=== PATIENT | female | born 2000 | race Caucasian/White ===

== ENCOUNTER → 2019-11-01 14:37 | Outpatient (BNVA) | payer OTHER, MEDICAID, SELFPAY | PROVIDERS: Family Provider Nurse Practitioner; PCP Nurse Practitioner; Visit Provider Nurse Practitioner Family | DX: J02.9 Acute pharyngitis, unspecified (principal) | CPT/HCPCS: 87081; 87880 ==

== ENCOUNTER → 2020-02-23 09:54 | Outpatient (BNVA) | payer OTHER, MEDICAID, SELFPAY | PROVIDERS: Family Provider Nurse Practitioner; PCP Nurse Practitioner; Visit Provider Nurse Practitioner | DX: Z30.42 Encounter for surveillance of injectable contraceptive (principal) | CPT/HCPCS: 81025 ==

== ENCOUNTER → 2021-02-01 11:51 | Outpatient (BNVA) | payer OTHER, MEDICAID, SELFPAY | PROVIDERS: Family Provider Nurse Practitioner; PCP Nurse Practitioner; Visit Provider Nurse Practitioner | DX: Z30.42 Encounter for surveillance of injectable contraceptive (principal); N91.2 Amenorrhea, unspecified | CPT/HCPCS: 81025 ==

== ENCOUNTER → 2021-07-17 11:55 | Outpatient (BNVA) | payer OTHER, SELFPAY | PROVIDERS: Family Provider Nurse Practitioner; PCP Nurse Practitioner; Visit Provider Nurse Practitioner | DX: Z12.4 Encounter for screening for malignant neoplasm of cervix (principal) | CPT/HCPCS: 88175 ==

== ENCOUNTER → 2021-07-27 12:52 | Outpatient (BNVA) | payer OTHER, MEDICAID, SELFPAY | PROVIDERS: Family Provider Nurse Practitioner; PCP Nurse Practitioner; Visit Provider Nurse Practitioner | DX: Z12.4 Encounter for screening for malignant neoplasm of cervix (principal) | CPT/HCPCS: 87624 ==

== ENCOUNTER → 2021-08-07 14:37 | Outpatient (BNVA) | payer OTHER, SELFPAY | PROVIDERS: Family Provider Nurse Practitioner; PCP Nurse Practitioner; Visit Provider Registered Nurse Neonatal Intensive Care | DX: Z20.822 Contact with and (suspected) exposure to COVID-19 (principal) | CPT/HCPCS: 87071; 87400; 87635; 87880 ==

== ENCOUNTER → 2022-01-28 10:03 | Outpatient (BNVA) | payer OTHER, SELFPAY | PROVIDERS: Family Provider Nurse Practitioner; PCP Nurse Practitioner; Visit Provider Obstetrics & Gynecology | DX: Z32.01 Encounter for pregnancy test, result positive (principal) | CPT/HCPCS: 84702 ==

== ENCOUNTER → 2022-01-30 10:01 | Outpatient (BNVA) | payer OTHER, SELFPAY | PROVIDERS: Family Provider Nurse Practitioner; PCP Nurse Practitioner; Visit Provider Obstetrics & Gynecology | DX: Z34.90 Encounter for supervision of normal pregnancy, unspecified, unspecified trimester (principal) | CPT/HCPCS: 84702 ==

== ENCOUNTER 2022-02-28 07:07 | Outpatient (CLI) | payer OTHER, MEDICAID, SELFPAY ==
--- NOTE | 2022-02-28 07:15 | US_ITS ---
WS: [id number] EARLY OBSTETRICAL ULTRASOUND (<14 WEEKS). HISTORY: Dating. COMPARISON: None available. Single intrauterine gestational sac is identified. Cardiac activity at 164 BPM. [place]-rump length yosvany sures 3.0 cm which corresponds to a gestation of 9w6d. Normal-appearing yolk sac and amnion demonstra stephanie. No subchorionic hemorrhage. No free fluid. Normal size ovaries with no mass. US/US OB <= 14 weeks fetus [id number] IMPRESSION: 1. Single intrauterine gestation of 9 weeks 6 days with an EDC of 09/27/2022. 2. Normal cardiac activity.
== END 2022-02-28 07:08 | disposition home or self-care (01) ==
PROVIDERS: PCP Nurse Practitioner; Visit Provider Obstetrics & Gynecology
DX: Z36.87 Encounter for antenatal screening for uncertain dates (principal)
CPT/HCPCS: 76801

== ENCOUNTER → 2022-04-18 13:15 | Outpatient (BNVA) | payer OTHER, MEDICAID, SELFPAY | PROVIDERS: PCP Nurse Practitioner; Visit Provider Obstetrics & Gynecology | DX: Z34.90 Encounter for supervision of normal pregnancy, unspecified, unspecified trimester (principal) | CPT/HCPCS: 80307; 84315; 84443; 85025; 86592; 86762; 86803; 86850; 86900; 87086; 87340; 87491; 87591; 87661; 87806; 88175 ==

== ENCOUNTER → 2022-04-22 08:32 | Outpatient (BNVA) | payer OTHER, SELFPAY | PROVIDERS: PCP Nurse Practitioner; Visit Provider Obstetrics & Gynecology | DX: Z34.90 Encounter for supervision of normal pregnancy, unspecified, unspecified trimester (principal) | CPT/HCPCS: 85025 ==

== ENCOUNTER → 2022-07-04 11:03 | Outpatient (BNVA) | payer OTHER, MEDICAID, SELFPAY | PROVIDERS: PCP Nurse Practitioner; Visit Provider Obstetrics & Gynecology | DX: Z34.90 Encounter for supervision of normal pregnancy, unspecified, unspecified trimester (principal) | CPT/HCPCS: 82950; 84315 ==

== ENCOUNTER → 2022-07-17 13:00 | Outpatient (BNVA) | payer OTHER, MEDICAID, SELFPAY | PROVIDERS: PCP Nurse Practitioner; Visit Provider Obstetrics & Gynecology | DX: Z34.90 Encounter for supervision of normal pregnancy, unspecified, unspecified trimester (principal) | CPT/HCPCS: 84315; 85025 ==

== ENCOUNTER → 2022-08-22 09:45 | Outpatient (BNVA) | payer OTHER, MEDICAID, SELFPAY | PROVIDERS: PCP Nurse Practitioner; Visit Provider Obstetrics & Gynecology | DX: Z34.90 Encounter for supervision of normal pregnancy, unspecified, unspecified trimester (principal) | CPT/HCPCS: 84315; 85025 ==

== ENCOUNTER 2022-08-30 02:00 | Observation (INO) | payer OTHER, MEDICAID, SELFPAY ==
[2022-08-29 22:09] VITALS: BMI 34.4
[2022-08-29 22:20] VITALS: BP 128/77; PULSE 103
[2022-08-29 22:43] VITALS: RESP 16
[2022-08-29 23:01] LABS: Amphetamines Screen Urine Negative (Negative); Barbiturates Screen Urine Negative (Negative); Benzodiazepines Screen Urine Negative (Negative); Cocaine Screen Urine Negative (Negative); Opiate Screen Urine Negative (Negative); PCP Screen Urine Negative (Negative); THC Screen Urine Negative (Negative)
[2022-08-29 23:47] LABS: Bilirubin Urine Neg (Negative); Blood Urine Neg (Negative); Glucose Urine UA Norm (Normal); Ketones Urine Negative (Negative); Leukocyte Esterase Urine 2+ (Negative); Nitrate Urine Negative (Negative); Protein Urine Trace (Negative); Specific Gravity, Urine 1.015 (1.005-1.030); Urine Appearance SL Hazy (CLEAR); Urine Color Yellow (Yellow); Urobilinogen Urine Norm (Negative); pH Urine 7 (5-7)
[2022-08-29 23:48] LABS: Bacteria Urine 2+ /hpf; RBC Urine 0-4 /hpf (0-2); Squamous Epithelial Cell Urine 15-25 /hpf (0-5); WBC Urine 40-55 /hpf (0-5)
[2022-08-29 23:49] LABS: Add Urine Culture? No
[2022-08-29] MEDS: terbutaline 1 mg/mL INJ 0.25 MG SUBCUT (23:49)
[2022-08-29] MEDS: lactated ringers 1,000 ML 999 ML IV (23:49)
[2022-08-29 23:54] VITALS: PULSE 93; O2SAT 98
[2022-08-29 23:59] VITALS: PULSE 88; O2SAT 100
[2022-08-30] VITALS (105 sets, daily range): BP systolic 98–114; BP diastolic 56–69; PULSE 76–122; RESP 18; TEMP 36.1; O2SAT 92–100
[2022-08-30] MEDS: ampicillin 1,000 MG in sodium chloride 0.9% (plus) 50 ML 100 MG IV (00:06)
[2022-08-30] MEDS: terbutaline 1 mg/mL INJ 0.25 MG SUBCUT (01:01)
[2022-08-30] MEDS: NIFEdipine 10 mg Capsule 30 MG PO (02:28)
[2022-08-30 03:01] LABS: Basophils % 0.2 %; Eosinophils % 0.1 %; Hematocrit 37.5 % (37.0-47.0); Hemoglobin 12.7 g/dL (11.5-15.3); Lymphocytes # 2.3 10^3/uL (0.8-4.8); Mean Corpuscular HGB Conc 33.9 g/dL (30.0-36.0); Mean Corpuscular Volume 91.5 fl (81-99); Mean Platelet Volume 10.1 fL (7.4-10.4); Monocytes % 6.9 %; Neutrophils # 10.82 10^3/uL (1.8-7.7); Nucleated Red Blood Cells % 0 %; Platelet Count 179 10^3/cmm (130-400); White Blood Count 14.3 10^3/uL (4.0-10.0)
[2022-08-30 03:21] LABS: Alanine Aminotransferase 12 U/L (0-33); Albumin Level 3.3 g/dL (3.5-5.2); Alkaline Phosphatase 192 U/L (35-105); Anion Gap 15.1 (5-19); Aspartate Amino Transferase 12 U/L (0-32); Blood Urea Nitrogen 4 mg/dL (6-20); Calcium 8.8 mg/dL (8.5-10.5); Carbon Dioxide 20 mmol/L (22-29); Chloride 105 mmol/L (98-107); Globulin 2.9 g/dL (1.3-4.6); Glomerular Filtration Rate 196.1 mL/min (90-130); Glucose 105 mg/dL (65-115); Osmolality Calculated 281 mOsm/kg (285-295); Potassium 3.1 mmol/L (3.5-5.1); Sodium 137 mmol/L (136-145); Total Bilirubin 0.2 mg/dL (0.15-1.2); Total Protein 6.2 g/dL (6.6-8.7)
[2022-08-30] MEDS: dextrose 5%-ns + KCl 20 20 MEQ/1,000 ML BAG 125 MEQ IV (04:27)
--- NOTE | 2022-08-30 04:46 | PC.NURSE ---
Rand Le gave orders to recheck pt cervix 4 hours from her check.
--- NOTE | 2022-08-30 09:43 | P.SS_ITS ---
Short Stay Summary Providers Date of Admit/Discharge: 08/30/22 Attending Provider: Beba Le DO Consults: Dr. Chris Gomez Primary Care Provider: ALAN Scott Chief Complaint: Abdominal Pain, Vaginal Pressure HPI History of Present Illness Harman Ortiz is a 22 year old female G3, P1 at 36 weeks gestation with a GAB 09/24/2022. Patient was observed on labor and delivery for labor contractions. Initial cervix exam was 1 cm and advanced to 1.5 almost 2 cm / 50%/-2 vertex presentation. Patient denied leakage of fluid or vaginal bleeding. Patient complained of anxiety and depression with suicidal ideation. She states that she had talked with friends and no longer desired suicidal attempt. Patient has been having stressful issues with father of baby. Patient has history of anxiety and depression but stopped her medication x2 when she found out she was . After overnight observation with uterine toco lysis with terbutaline and Procardia contractions spaced out but returned in an irregular fashion. I talked with Dr. Gomez regarding a consultation regarding patient's suicidal ideation anxiety and depression, he will see patient and determine if discharge is advised or inpatient observation. Review of Systems General: Reports: 10 or more systems reviewed and unremarkable except in HPI and below Home Meds/Allergies Home Medications and Allergies Home Medications Medication Instructions Recorded Confirmed Type prenat.vits,rima,dlg-wbpk-gvina 1 tab PO DAILY 04/18/22 08/22/22 History Allergies Allergy/AdvReac Type Severity Reaction Status Date / Time seafood Allergy Unknown Unknown Uncoded 08/22/22 09:36 PFSH Acute PFSH: Medical History Anxiety and depression Oral contraceptive prescribed Surgical History No history of previous surgery Family History Grandmother Cancer Hypertension Thyroid condition Diabetes Hypercholesterolemia Grandfather Hypertension Diabetes Heart disease Colon cancer Denies family history of Breast cancer Female Reproductive History: Date of last menstrual period: 06/19/21 : 3 Para: 1 Vitals/I&O/Wt Last Vital Signs Temp 97.0 F L 08/30/22 07:17 Pulse 76 08/30/22 09:08 Resp 18 08/30/22 07:17 BP 99/57 08/30/22 09:08 Pulse Ox 97 08/30/22 07:09 Weight last 48 hrs Weight 93.894 kg Physical Exam Narrative: 22-year-old female alert and orient x3 no acute distress HENMT: COMMON NORMALS: normocephalic, hearing grossly normal bilaterally, moist oral mucous membranes and dentition normal (Poor dentition) HEAD & SCALP: normocephalic Resp: COMMON NORMALS: normal respiratory effort and clear to auscultation bilaterally AUSCULTATION: clear to auscultation bilaterally Cardio: COMMON NORMALS: regular rate and regular rhythm RATE: regular rate RHYTHM: regular rhythm : COMMON NORMALS: Yes no CVA tenderness BLADDER/KIDNEY EXAM: Yes no CVA tenderness Back/Pelvis: COMMON NORMALS: no CVA tenderness PELVIS: Yes Other pelvic findings COCCYX: no swelling, no tenderness and Other pelvic findings Extremity: GENERAL: Yes edema (No edema) Neuro: COMMON NORMALS: CN's II-XII intact bilaterally Psych: COMMON NORMALS: mental status grossly normal, Normal thought process present, cooperative, normal affect, speech normal, activity/motor behavior normal, denies homicidal ideation and denies suicidal ideation (Admits to suicidal ideation 08/29/2022) SPEECH: Yes normal speech THOUGHT PROCESS: Normal thought process present Hospital Course Hospital Course See above history of present complaint Discharge Summary 22-year-old G3, P1 female at 36 weeks intrauterine gestation was observed on labor and delivery for labor. Contractions remained irregular with no cervical change past 2 cm. Psych consultation with Dr. Chris Gomez due to patient having suicidal ideation on August 29, 2022. She has history of anxiety and depression presently on no medications. If discharge is acceptable with Dr. Gomez will discharge patient to home she is to follow-up for visit on 09/06/2022. Discharge Plan Discharge Patient Disposition: Home Condition: Stable Prescriptions: Continued prenat.vits,rima,pmr-lfmh-pwjmu Tablet 1 tab PO DAILY Discharge Orders: Discharge Order (Routine); Ordered 08/30/22 Ordered By: Beba Le Discharge Diet: Regular Discharge Activity: Resume usual activity Patient Instructions: Opioid Safety Assessment: A. 1. 36-week IUP 2. contractions 3. Suicidal ideations with anxiety and depression 4. Hypokalemia?resolving 5. Asymptomatic bacteriuria Plan of Treatment: P. 1. Observe on labor and delivery for labor 2. IV hydration, LR followed by D5 1/2 NS plus potassium 3. Terbutaline 0.25 mg subcu x2 doses 30 minutes apart 4. Procardia 30 mg p.o. 5. Ampicillin 1 g IVPB 6. Psych consultation Dr. Chris Gomez 7. Discharge to home after consultation with Dr. Gomez if no inpatient care needed. 8. Follow-up 1 week for visit (09/06/2022) 9. Rx Macrobid 100 mg twice daily x7 days for asymptomatic bacteriuria Attestations Medical Necessity Statement*: Labor and delivery observation was needed due to labor contractions and suicidal ideation. Time Spent in Patient Care*: greater than 30 min Quality Metrics Clinical Quality Measures: [ No reported AMI, CVA or VTE this stay ] Coding Level of Care Code Acute Speeder Operator for Chg Fwd Exam Comprehensive Medical Decision Making Moderate Complexity
--- NOTE | 2022-08-30 09:44 | P.TNLD_ITS ---
OB L&D Triage Visit Information: Date of evaluation: 08/30/22 Reason for evaluation: other Comments/Additional reason(s) for visit: 22-year-old female G3, P1 at 36 weeks gestation by 20-week ultrasound with GAB 09/24/2022. Patient was observed on labor and delivery with complaints of abdominal pain onset 3 days ago. Patient also complained of thoughts of suicide onset August 29, 2022. Patient gives history of anxiety and depression before was on medication but stopped after diagnosis. Patient has been having stressful few days with father of the baby. External monitoring reveals contractions every 2 to 4 minutes mild to moderate by palpation cervix initially 1 cm and progressed to 1.5 cm / 50%/-3. Membranes intact. Patient denies any leakage of fluid or vaginal bleeding. Evaluation: Baseline heart rate: 135 Variability: Moderate (11-25) monitor accelerations: Present 15x15 monitor decelerations: None Cervical dilation (cm): 2 Cervical effacement (%): 50 station: -2 Laboratory results: Laboratory Tests 08/29/22 08/29/22 08/30/22 22:44 22:44 02:05 WBC 14.3 H RBC 4.10 Hgb 12.7 Hct 37.5 MCV 91.5 MCH 31.0 MCHC 33.9 RDW 12.0 L Plt Count 179 MPV 10.1 Neut % (Auto) 76.0 Lymph % (Auto) 16.0 [place] % (Auto) 6.9 Eos % (Auto) 0.1 Baso % (Auto) 0.2 Neut # (Auto) 10.82 H Lymph # (Auto) 2.3 [place] # (Auto) 1.0 H Eos # (Auto) 0.0 Baso # (Auto) 0.0 Nucleated RBC % (a uto) 0 Nucleated RBCs # 0.0 Sodium Potassium Chloride Carbon Dioxide Anion Gap BUN Creatinine GFR Calculation Glucose Calculated Osmolal ity Calcium Total Bilirubin AST ALT Alkaline Phosphata se Total Protein Albumin Globulin Urine Color Yellow Urine Appearance Sl hazy A Urine pH 7 Ur Specific Gravit y 1.015 Urine Protein Trace Urine Glucose (UA) Norm Urine Ketones Negative Urine Blood Neg Urine Nitrate Negative Urine Bilirubin Neg Urine Urobilinogen Norm Ur Leukocyte Adriana ase 2+ H Urine RBC 0-4 H Urine WBC 40-55 H Ur Squamous Epith Cells 15-25 H Amorphous Sediment Not Reportable Urine Bacteria 2+ H Urine Opiates Scre en Negative Ur Barbiturates Sc reen Negative Ur Phencyclidine S crn Negative Ur Amphetamines Sc reen Negative U Benzodiazepines Scrn Negative Urine Cocaine Scre en Negative U Marijuana (THC) Screen Negative 08/30/22 02:05 WBC RBC Hgb Hct MCV MCH MCHC RDW Plt Count MPV Neut % (Auto) Lymph % (Auto) [place] % (Auto) Eos % (Auto) Baso % (Auto) Neut # (Auto) Lymph # (Auto) [place] # (Auto) Eos # (Auto) Baso # (Auto) Nucleated RBC % (a uto) Nucleated RBCs # Sodium 137 Potassium 3.1 L Chloride 105 Carbon Dioxide 20 L Anion Gap 15.1 BUN 4 L Creatinine 0.4 L GFR Calculation 196.1 H Glucose 105 Calculated Osmolal ity 281 L Calcium 8.8 Total Bilirubin 0.2 AST 12 ALT 12 Alkaline Phosphata se 192 H Total Protein 6.2 L Albumin 3.3 L Globulin 2.9 Urine Color Urine Appearance Urine pH Ur Specific Gravit y Urine Protein Urine Glucose (UA) Urine Ketones Urine Blood Urine Nitrate Urine Bilirubin Urine Urobilinogen Ur Leukocyte Adriana ase Urine RBC Urine WBC Ur Squamous Epith Cells Amorphous Sediment Urine Bacteria Urine Opiates Scre en Ur Barbiturates Sc reen Ur Phencyclidine S crn Ur Amphetamines Sc reen U Benzodiazepines Scrn Urine Cocaine Scre en U Marijuana (THC) Screen Vital signs: Vital Signs - 24 hr 08/29/22 22:20 08/29/22 23:54 08/29/22 23:59 Temperature Pulse Rate 103 H 93 88 Respiratory Rate Blood Pressure 128/77 Pulse Oximetry 98 100 08/30/22 00:04 08/30/22 00:09 08/30/22 00:14 Temperature Pulse Rate 101 H 106 H 107 H Respiratory Rate Blood Pressure Pulse Oximetry 99 99 98 08/30/22 00:19 08/29/22 22:43 08/30/22 00:37 Temperature Pulse Rate 106 H 102 H Respiratory Rate 16 Blood Pressure 109/64 Pulse Oximetry 99 08/30/22 00:51 08/30/22 00:56 08/30/22 01:01 Temperature Pulse Rate 100 116 H 109 H Respiratory Rate Blood Pressure Pulse Oximetry 97 97 97 08/30/22 01:07 08/30/22 01:06 08/30/22 01:11 Temperature Pulse Rate 106 H 109 H 121 H Respiratory Rate Blood Pressure 109/63 Pulse Oximetry 98 98 08/30/22 01:16 08/30/22 01:21 08/30/22 01:29 Temperature Pulse Rate 118 H 117 H 112 H Respiratory Rate Blood Pressure Pulse Oximetry 97 97 99 08/30/22 01:34 08/30/22 01:37 08/30/22 01:39 Temperature Pulse Rate 107 H 113 H 110 H Respiratory Rate Blood Pressure 114/66 Pulse Oximetry 100 100 08/30/22 01:44 08/30/22 01:49 08/30/22 01:54 Temperature Pulse Rate 108 H 112 H 117 H Respiratory Rate Blood Pressure Pulse Oximetry 99 100 99 08/30/22 01:59 08/30/22 02:04 08/30/22 02:08 Temperature Pulse Rate 111 H 109 H 109 H Respiratory Rate Blood Pressure 111/69 Pulse Oximetry 99 99 08/30/22 02:09 08/30/22 02:14 08/30/22 02:19 Temperature Pulse Rate 106 H 106 H 101 H Respiratory Rate Blood Pressure Pulse Oximetry 99 98 97 08/30/22 02:24 08/30/22 02:29 08/30/22 02:34 Temperature Pulse Rate 101 H 122 H 107 H Respiratory Rate Blood Pressure Pulse Oximetry 97 98 96 08/30/22 02:37 08/30/22 02:39 08/30/22 02:44 Temperature Pulse Rate 106 H 113 H 106 H Respiratory Rate Blood Pressure 113/68 Pulse Oximetry 98 97 08/30/22 02:49 08/30/22 02:54 08/30/22 02:59 Temperature Pulse Rate 105 H 102 H 105 H Respiratory Rate Blood Pressure Pulse Oximetry 98 96 97 08/30/22 03:04 08/30/22 03:07 08/30/22 03:09 Temperature Pulse Rate 102 H 100 103 H Respiratory Rate Blood Pressure 114/65 Pulse Oximetry 95 94 94 08/30/22 03:15 08/30/22 03:14 08/30/22 03:20 Temperature Pulse Rate 118 H 110 H 99 Respiratory Rate Blood Pressure Pulse Oximetry 94 94 94 08/30/22 03:19 08/30/22 03:24 08/30/22 03:26 Temperature Pulse Rate 104 H 98 101 H Respiratory Rate Blood Pressure Pulse Oximetry 95 95 94 08/30/22 03:29 08/30/22 03:34 08/30/22 03:37 Temperature Pulse Rate 104 H 104 H 103 H Respiratory Rate Blood Pressure 99/56 Pulse Oximetry 95 95 08/30/22 03:39 08/30/22 03:44 08/30/22 03:50 Temperature Pulse Rate 101 H 102 H 96 Respiratory Rate Blood Pressure Pulse Oximetry 94 94 92 08/30/22 03:49 08/30/22 03:54 08/30/22 03:59 Temperature Pulse Rate 99 102 H 94 Respiratory Rate Blood Pressure Pulse Oximetry 93 97 96 08/30/22 04:04 08/30/22 04:08 08/30/22 04:09 Temperature Pulse Rate 89 96 90 Respiratory Rate Blood Pressure 109/65 Pulse Oximetry 95 95 08/30/22 04:14 08/30/22 04:19 08/30/22 04:24 Temperature Pulse Rate 96 100 89 Respiratory Rate Blood Pressure Pulse Oximetry 97 98 96 08/30/22 04:29 08/30/22 04:34 08/30/22 04:38 Temperature Pulse Rate 96 96 93 Respiratory Rate Blood Pressure 100/60 Pulse Oximetry 96 96 08/30/22 04:39 08/30/22 04:44 08/30/22 04:49 Temperature Pulse Rate 88 94 89 Respiratory Rate Blood Pressure Pulse Oximetry 95 95 93 08/30/22 04:54 08/30/22 04:59 08/30/22 05:01 Temperature Pulse Rate 88 97 92 Respiratory Rate Blood Pressure Pulse Oximetry 95 95 92 08/30/22 05:04 08/30/22 05:08 08/30/22 05:09 Temperature Pulse Rate 92 92 96 Respiratory Rate Blood Pressure 98/57 Pulse Oximetry 93 92 95 08/30/22 05:15 08/30/22 05:14 08/30/22 05:19 Temperature Pulse Rate 95 95 94 Respiratory Rate Blood Pressure Pulse Oximetry 92 93 95 08/30/22 05:24 08/30/22 05:29 08/30/22 05:34 Temperature Pulse Rate 95 92 91 Respiratory Rate Blood Pressure Pulse Oximetry 95 96 94 08/30/22 05:37 08/30/22 05:39 08/30/22 05:44 Temperature Pulse Rate 93 91 96 Respiratory Rate Blood Pressure 100/56 Pulse Oximetry 95 96 08/30/22 05:49 08/30/22 05:54 08/30/22 05:59 Temperature Pulse Rate 90 93 86 Respiratory Rate Blood Pressure Pulse Oximetry 96 95 94 08/30/22 06:04 08/30/22 06:07 08/30/22 06:09 Temperature Pulse Rate 94 93 89 Respiratory Rate Blood Pressure 99/57 Pulse Oximetry 95 96 08/30/22 06:14 08/30/22 06:19 08/30/22 06:24 Temperature Pulse Rate 89 94 89 Respiratory Rate Blood Pressure Pulse Oximetry 96 96 96 08/30/22 06:29 08/30/22 06:34 08/30/22 06:38 Temperature Pulse Rate 90 95 90 Respiratory Rate Blood Pressure 100/57 Pulse Oximetry 95 95 08/30/22 06:39 08/30/22 06:44 08/30/22 06:49 Temperature Pulse Rate 97 90 93 Respiratory Rate Blood Pressure Pulse Oximetry 97 95 97 08/30/22 06:54 08/30/22 06:59 08/30/22 07:04 Temperature Pulse Rate 90 87 95 Respiratory Rate Blood Pressure Pulse Oximetry 96 97 97 08/30/22 07:08 08/30/22 07:09 08/30/22 07:17 Temperature 97.0 F L Pulse Rate 88 94 Respiratory Rate 18 Blood Pressure 100/63 Pulse Oximetry 97 08/30/22 08:07 08/30/22 08:37 08/30/22 09:08 Temperature Pulse Rate 93 87 76 Respiratory Rate Blood Pressure 100/56 102/62 99/57 Pulse Oximetry 08/29/22 22:43 08/30/22 07:17 Temperature 97 F L Pulse Rate Respiratory Rate 16 18 Blood Pressure Pulse Oximetry Care GAB Calculator Estimated Delivery Date Method Current WG Current Estimate 09/24/22 Ultrasound #2 36w 3d Other Estimates 09/27/22 Ultrasound #1 36w 0d Specific Issues/Plans A. 1. 36-week IUP 2. contractions 3. Anxiety and depression with suicidal ideations 4. Hypokalemia 5. Asymptomatic bacteriuria 6. Tobacco use during (vapes) P. 1. Observation on labor and delivery with external monitoring 2. IV hydration 3. Terbutaline 0.25 mg subcu x230 minutes apart 4. Procardia 30 mg 1 p.o. 5. Ampicillin 1 g IVPB 6. IV D5 1/2NS plus potassium 20 mEq 7. Psych consult with Dr. Chris Gomez 8. Follow-up 1 week for scheduled care visit (09/06/2022) 9. DC to home after psych consult if inhouse observation not advised. 10. Rx Macrobid 100 mg twice daily x7 days for asymptomatic bacteriuria Coding Level of Care Code Acute Film Vault Supervisor for Salvador Valle
== END 2022-08-30 14:37 | disposition home or self-care (01) ==
LOC: OPOB 08:54 → OBGYN 08:54
PROVIDERS: Admitting Provider Obstetrics & Gynecology; PCP Nurse Practitioner; Visit Provider Obstetrics & Gynecology
DX: O60.03 Preterm labor without delivery, third trimester (principal); Z3A.36 36 weeks gestation of pregnancy
CPT/HCPCS: 12345; 36415; 59025; 80053; 80306; 81001; 85025; 96372; 99211; G0378; J0290; J3105; J7120

== ENCOUNTER → 2022-09-06 08:20 | Outpatient (BNVA) | payer OTHER, MEDICAID, SELFPAY | PROVIDERS: PCP Nurse Practitioner; Visit Provider Obstetrics & Gynecology | DX: Z34.90 Encounter for supervision of normal pregnancy, unspecified, unspecified trimester (principal); Z00.00 Encounter for general adult medical examination without abnormal findings | CPT/HCPCS: 84315; 87086 ==

== ENCOUNTER → 2022-09-13 14:45 | Outpatient (BNVA) | payer OTHER, MEDICAID, SELFPAY | PROVIDERS: PCP Nurse Practitioner; Visit Provider Obstetrics & Gynecology | DX: Z34.90 Encounter for supervision of normal pregnancy, unspecified, unspecified trimester (principal) | CPT/HCPCS: 87081 ==

== ENCOUNTER 2022-09-17 14:45 | Inpatient (IN) | payer OTHER, MEDICAID, SELFPAY ==
[2022-09-17] VITALS (44 sets, daily range): BP systolic 98–132; BP diastolic 56–81; PULSE 59–105; RESP 18; TEMP 36.6; O2SAT 94–100; BMI 34.7
[2022-09-17] MEDS: lactated ringers 1,000 ML 999 ML IV ×3 (15:15→21:25)
[2022-09-17] MEDS: miSOPROStol 100 mcg tablet 25 MCG VAGINAL (16:14)
[2022-09-17 19:02] LABS: Basophils % 0.1 %; Eosinophils % 0.2 %; Hematocrit 40.5 % (37.0-47.0); Hemoglobin 13.5 g/dL (11.5-15.3); Lymphocytes # 1.7 10^3/uL (0.8-4.8); Lymphocytes % 19.6 %; Mean Corpuscular HGB Conc 33.3 g/dL (30.0-36.0); Mean Corpuscular Hemoglobin 30.5 pg (28.0-34.0); Mean Corpuscular Volume 91.6 fl (81-99); Mean Platelet Volume 11.8 fL (7.4-10.4); Monocytes # 0.6 10^3/uL (0.2-0.9); Monocytes % 7.5 %; Neutrophils % 72.4 %; Nucleated Red Blood Cells % 0 %; Platelet Count 205 10^3/cmm (130-400); Red Blood Count 4.42 10^6/uL (4.1-5.3); Red Cell Distribution Width 12.4 % (12.1-15.1); White Blood Count 8.6 10^3/uL (4.0-10.0)
--- NOTE | 2022-09-17 21:29 | ANES.PREANE2 ---
Pre-Anesthetic Assessment Height/Weight: Height 1.65 m Weight 94.801 kg Temp Pulse Resp BP Pulse Ox O2 Del Method 97.9 F 85 18 119/61 97 09/17/22 15:13 09/17/22 21:27 09/17/22 15:13 09/17/22 21:27 09/17/22 21:23 09/17/22 15:00 Preop Diagnosis: labor pain epidural Familial anesthetic complications: none Was Beta Ayesha taken within 24 hours: N/A Was Clonidine taken within 24 hours: N/A Social Tobacco Exam alert, oriented x 3, clear to auscultation bilaterally and regular rate & rhythm Airway Submandibular: within normal limits Cervical ROM: within normal limits Mallampati: Class II Dentition: chipped and loose Comments: Comments: terrible teeth Pulmonary None reported CV/HEM None reported None reported Hepatic None reported GI None reported Metabolic None reported Musc/skel None reported Neuropsych Anxiety and Depression Anesthetic Plan ASA status: 2 Anesthesia: Regional (specify below) Risk of > 500 ml blood loss (7ml/kg in children): No Medications/Allergies Home Medications Medication Instructions Recorded Confirmed Last Taken Type prenat.vits,rima,rte-lrjx-lnmru 1 tab PO DAILY 04/18/22 09/13/22 Unknown History citalopram 10 mg tablet (Celexa) 10 mg PO DAILY #30 tabs 08/30/22 09/13/22 Unknown Rx Allergies Allergy/AdvReac Type Severity Reaction Status Date / Time Fish Containing Products Allergy ALGY-Hives Verified 09/13/22 14:26 shellfish derived Allergy ALGY-Hives Verified 09/13/22 14:26 Current Medications Generic Name Dose Route Start Last Admin Trade Name Freq PRN Reason Stop Dose Admin Lactated Ringer's 1,000 mls @ 999 mls/hr 09/17/22 15:13 09/17/22 15:15 Lactated Ringers IV 999 mls/hr .Q1H1M PRN Administration Per L&D Rescitation Protocol Lactated Ringer's 1,000 mls @ 999 mls/hr 09/17/22 20:05 09/17/22 21:25 Lactated Ringers IV 999 mls/hr .Q1H1M PRN Administration See label comments [facility] Anesthesia Medical History Anxiety and depression Oral contraceptive prescribed Surgical History No history of previous surgery Family History Grandmother Cancer Hypertension Thyroid condition Diabetes Hypercholesterolemia Grandfather Hypertension Diabetes Heart disease Colon cancer Denies family history of Breast cancer Female Reproductive History Date of last menstrual period: 06/19/21 : 3 Para: 1 Data Anesthesia 09/17/22 15:15 Short CBC 09/17/22 Range/Units 15:15 WBC 8.6 (4.0-10.0) 10^3/uL Hgb 13.5 (11.5-15.3) g/dL Hct 40.5 (37.0-47.0) % MCV 91.6 (81-99) fl Plt Count 205 (130-400) 10^3/cmm Neut % (Auto) 72.4 % Neut # (Auto) 6.20 (1.8-7.7) 10^3/uL Cardiac Studies: No Data to Display
--- NOTE | 2022-09-17 21:31 | P.ANES_ITS ---
Anesthesia Procedures Procedure/Date: 09/17/22 epidural Procedure Narrative: epidural complete, bolus given, epidural pump initiated with BRUSH WORKER education given, vitals taken during procedure and satisfactory throughout, patient admits to decrease pain, report of procedure to OB RN Epidural: Time Out Performed: Yes Consents Signed: Procedure Consent Consent: requested by attending/covering physician, from patient, risks and benefits reviewed and patient agrees to proceed Lumbar Level: L3-L4 Epidural position: sitting Epidural procedure: sterile prep of area, 1% lidocaine to numb the area (3 mL), 18 g needle, negative for paresthesia passed, neg for paresthesia, test dose given, 1.5% xylocaine 1:200k epi (5 mL), 0.2% Ropivacaine bolus ml (5 mL), placed PCEA, no systemic response, sterile dressing applied, L.U.D. no apparent complications and 0.2% Ropiavacaine @ mls/hr (13 mL/hr)
--- NOTE | 2022-09-17 22:15 | PM.OPHPUD ---
Labor & Delivery H&P Update Date of Procedure: September 17, 2022 Date H&P Performed: 09/13/22 H&P update information: I have reviewed H&P completed within last 30 days, I have examined patient prior to procedure and Changes to prior documentation as noted here Changes to previous documentation: The patient's cervix has progressed to 4/70/-2. She is having irregular contractions. She is admitted for induction at term with a favorable cervix Admission Diagnosis: iup@39 weeks. Preop diagnosis: induction of labor at term. Primary indication for procedure: patient request Planned procedure: Related Problem List Diagnoses (1) Tobacco abuse: (2) Supervision of normal :
[2022-09-17] MEDS: oxytocin 30 UNIT/500 ML BAG 600 UNIT IV (23:00)
--- NOTE | 2022-09-17 23:24 | PM.DELIVERY ---
Delivery Note: Date of delivery: September 17, 2022 Pre-delivery diagnoses: IUP@ 39 weeks Post-delivery diagnoses: Same, delivered Procedure: Delivering Physician: Juan Estimated blood loss (mL): 3 Findings: Term male in the ALTAGRACIA presentation with a single nuchal card reduced at the perineum Pre-Delivery Course: The patient was admitted for induction at term. She had a single dose of cytotec and started labor from it. She received an epidural for pain management. AROM was performed at 9 cm dilation. She had complete cervical dilation and began pushing. Delivery: The patient had complete cervical dilation and began to push. The baby was ROP and maternal maneuvers were done to rotate baby. The head delivered in the ALTAGRACIA position over an intact perineum under epidural anesthesia. The nose and mouth were bulb suctioned. A single nuchal cord was reduced at the perineum. The shoulders and body delivered atraumatically. The baby was placed onto the mother's abdomen. The cord was clamped and cut. Cord blood was obtained. The placenta delivered spontaneously. It was inspected and found to be intact. Inspection of the perineum revealed no lacerations and no repair was required. Estimated blood loss 3 mL. Apgars on baby were 8 at 1 minute and 9 at 5 minutes. Weight of baby is 7 pounds 3 ounces. Mother and baby were stable post delivery. History History History 3 Term 0 1 Miscarriages/Ectopic 1 Living Children 1 Coding Level of Care Code Acute Code for Chg Fwd
[2022-09-18] VITALS (42 sets, daily range): BP systolic 88–129; BP diastolic 50–72; PULSE 52–117; RESP 13–18; TEMP 35.7–36.8; O2SAT 95–99
[2022-09-18] MEDS: prenatal vitamin Capsule 1 CAP PO (08:51)
[2022-09-18] MEDS: docusate sodium 100 mg Capsule PO ×2 (08:51→18:22)
[2022-09-18] MEDS: ibuprofen 800 mg tablet PO ×2 (08:51→20:50)
--- NOTE | 2022-09-18 11:09 | PM.PN ---
Subjective Subjective: The patient has done well overnight. No concerns. She would like to have her tubal ligation today. Vitals/I&O/Wt Last Vital Signs Temp 97.2 F L 09/18/22 08:58 Pulse 57 L 09/18/22 08:59 Resp 16 09/18/22 09:00 BP 110/59 09/18/22 08:59 Pulse Ox 100 09/17/22 22:03 O2 Del Method 09/18/22 04:52 09/17/22 09/18/22 09/18/22 22:59 06:59 14:59 Intake Total 1999 540.4 / 2540.4 Output Total 200 / 200 500 / 700 Balance 1800 / 1800 40.4 / 1840.4 Weight last 48 hrs Weight 209 lb Physical Exam Narrative: The patient has no concerns today. She is ambulating, tolerating a regular diet, pain is well controlled. Const: COMMON NORMALS: no acute distress, patient oriented x3, no limitations, healthy appearing, alert and well nourished GENERAL APPEARANCE: cooperative, comfortable, well kempt and well developed ORIENTATION/CONSCIOUSNESS: Yes awake, Yes oriented to person, Yes oriented to place and Yes oriented to time Resp: COMMON NORMALS: normal respiratory effort EFFORT & INSPECTION: Yes able to speak in complete sentences GI: COMMON NORMALS: Soft to palpation and non-tender PALPATION: Yes Soft to palpation Extremity: COMMON NORMALS: no calf tenderness Neuro: COMMON NORMALS: patient oriented x3 SENSORIUM/ORIENTATION: Yes alert, Yes oriented to person, Yes oriented to place and Yes oriented to time Psych: APPEARANCE: Yes well kempt Urinary Catheter Management: [place]: Cath Placed During This Visit: yes, but has since been removed by the nurse Reason for Continuing Indwelling Catheter: Decision to DC Catheter Urinary Catheter Date of Insertion: 09/17/22 Urinary Catheter Time of Insertion: 21:54 Date Urinary Catheter Removed: 09/17/22 Time Urinary Catheter Discontinued: 22:25 Data 09/17/22 15:15 Attestations Medical Necessity Statement*: The patient had a vaginal delivery, just before midnight. She would like to be discharged in the AM Coding Level of Care Code Acute Code for Chg Fwd
[2022-09-18 12:13] LABS: Hematocrit 36.8 % (37.0-47.0); Hemoglobin 12.2 g/dL (11.5-15.3); Mean Corpuscular HGB Conc 33.2 g/dL (30.0-36.0); Mean Corpuscular Hemoglobin 30.3 pg (28.0-34.0); Mean Corpuscular Volume 91.3 fl (81-99); Mean Platelet Volume 11.2 fL (7.4-10.4); Platelet Count 162 10^3/cmm (130-400); Red Blood Count 4.03 10^6/uL (4.1-5.3); Red Cell Distribution Width 12.3 % (12.1-15.1); White Blood Count 9.9 10^3/uL (4.0-10.0)
--- NOTE | 2022-09-18 13:20 | W.PM.OPSUD ---
Surgery/Procedure H&P Update DATE OF PROCEDURE: September 18, 2022 DATE H&P PERFORMED: 09/17/22 H&P UPDATE INFORMATION: I have reviewed H&P completed within last 30 days, I have examined patient prior to procedure and No changes to prior documentation CHANGES TO PREVIOUS DOCUMENTATION: The patient desires a tubal. Papers were signed on 09/13/22. PREOP DIAGNOSIS: induction of labor at term. PLANNED PROCEDURE: Operation Date: 09/18/22 14:00 Proposed Procedures p Bilateral Tubal Ligation(Not Applicable) - Kenyatta Martinez MD Related Problem List Diagnoses (1) Sterilization consult:
--- NOTE | 2022-09-18 13:26 | PC.NURSE ---
pt off floor for tubal with OR staff via [facility].
--- NOTE | 2022-09-18 13:39 | P.ANESUD_ITS ---
Pre-Anesthetic Update Pre-Anesthetic Assessment: Date of Surgery/Procedure: 09/18/22 Preop Emilie gnosis: induction of labor at term. Proposed Procedure: Operation Date: 09/18/22 14:00 Proposed Procedures p Bilateral Tubal Ligation(Not Applicable) - Kenyatta Martinez MD Any changes to Pre-Anesthetic Assessment?: No Last Intake: Intake 0800 - Patient ate half of a pancake, light meal - 6 hr delay Last Liquid Date 09/18/22 Last Liquid Time 10:00 Last Solid Date 09/18/22 Last Solid Time 08:00 Labs Last 48hrs: Short CBC 09/17/22 09/18/22 Range/Units 15:15 12:00 WBC 8.6 9.9 (4.0-10.0) 10^3/ uL Hgb 13.5 12.2 (11.5-15.3) g/dL Hct 40.5 36.8 L (37.0-47.0) % MCV 91.6 91.3 (81-99) fl Plt Count 205 162 (130-400) 10^3/c mm Neut % (Auto) 72.4 % Neut # (Auto) 6.20 (1.8-7.7) 10^3/u L Vitals: Temperature 97.4 F L 09/18/22 13:30 Temperature Source Temporal Artery S can 09/18/22 13:30 Pulse Rate 54 L 09/18/22 13:30 Pulse Rhythm 09/17/22 15:00 Pulse Strength 3+ Normal 09/17/22 15:00 Respiratory Rate 16 09/18/22 13:30 Respiratory Effort Non-Labored 09/17/22 15:00 Respiratory Depth Normal 09/17/22 15:00 Respiratory Patter n 09/17/22 15:00 Blood Pressure 108/57 09/18/22 13:30 Blood Pressure Karime n 74 09/18/22 13:30 Pulse Oximetry 98 09/18/22 13:30 Oxygen Delivery Me thod 09/18/22 13:30 Exam: Pre-Anes Outpt Exam: alert, oriented x 3, clear to auscultation bilaterally and regular rate & rhythm Other Pertinent Information: Other Pertinent Information: Spinal Cardiac Studies: No Data to Display
--- NOTE | 2022-09-18 15:22 | PM.OP ---
Operative Report Date of procedure: September 18, 2022 Pre-op diagnosis: Preop Diagnosis sterilization consult Post-op diagnosis: same Post-op findings: normal appearing fallopian tubes Procedure done: bilateral fimbriectomy Specimens removed/disposition: bilateral fimbria with partial fallopian tube to pathology Surgeon: Kenyatta Martinez Anesthesia: General Estimated blood loss (mL): 0 IV fluids (mL): 800 Complications: none Condition: stable Disposition: PACU Procedure: The patient was taken to the operating room where general anesthesia was administered and found to be adequate. She was prepped and draped in the usual fashion in the dorsal supine position. An infraumbilical incision was made and carried down to the underlying layer of fascia. The fascia was nicked in the midline and the peritoneum entered sharply with the Metzenbaum scissors. The the patient was tilted to the right and the fallopian tube identified. The fallopian tube was grasped with a [place] clamp and the clamp was walked down the tube to the fimbria. Using a hand held cautery device, a portion of the tube and the entire fimbria was removed. The fallopian tube and ovary were returned to the abdomen. This was performed The same way on the left side. There was excellent hemostasis. The fascia was closed with 0 Vicryl. The skin was closed with 3-0 Vicryl. The patient tolerated the procedure well. Sponge lap and needle counts were correct x3. She was taken to the recovery room in stable condition.
--- NOTE | 2022-09-18 15:50 | PC.NURSE ---
pt back to room from OR via gurney. moved to post bed. VSS. pt denies pain or needs. call light in reach
--- NOTE | 2022-09-18 15:50 | ANE.PACU2 ---
Inpatient post-anesthesia follow up: Airway intact: Yes Vital signs: Temperature 97.1 F Pulse Rate 67 Respiratory Rate 15 Blood Pressure 110/72 Pulse Oximetry 95 Oxygen Delivery Me thod Room Air Oxygen Flow Rate 6 Fraction of Inspir ed Oxygen Hydration adequate: Yes Nausea and vomiting: No Pain level: 1 Mental status: Baseline
[2022-09-18] MEDS: HYDROcodone-acetaminophen 5-325 mg Tablet PO (18:22)
[2022-09-18] MEDS: benzocaine-menthol 78 gm Canister 1 SPRAY TOPICAL (20:50)
[2022-09-19 04:40] VITALS: BP 107/57; PULSE 50
--- NOTE | 2022-09-19 08:03 | P.DS_ITS ---
Discharge Providers Date of Admission: 09/17/22 14:45 Date of Discharge: September 19, 2022 Attending Provider at Admission: Kenyatta Mratinez MD Attending Provider at Discharge: Kenyatta Martinez MD Primary Care Provider: ALAN Scott Diagnoses at Discharge Discharge Diagnosis (1) Sterilization consult: Status: Acute Reason for Visit Reason for Visit: induction Hospital Course Hospital Course The patient was admitted for induction at term. She had spontaneous delivery of a term . She underwent a tubal ligation on day #1. She is ready for discharge on day #2 Physical Exam Narrative: The patient is a little sore today, but otherwise is doing well. Const: COMMON NORMALS: no acute distress, patient oriented x3, no limitations, healthy appearing, alert and well nourished GENERAL APPEARANCE: cooperative, comfortable, well kempt and well developed ORIENTATION/CONSCIOUSNESS: Yes awake, Yes oriented to person, Yes oriented to place and Yes oriented to time Resp: COMMON NORMALS: normal respiratory effort EFFORT & INSPECTION: Yes able to speak in complete sentences GI: COMMON NORMALS: Soft to palpation and non-tender PALPATION: Yes Soft to palpation Extremity: COMMON NORMALS: no calf tenderness Neuro: COMMON NORMALS: patient oriented x3 SENSORIUM/ORIENTATION: Yes alert, Yes oriented to person, Yes oriented to place and Yes oriented to time Psych: APPEARANCE: Yes well kempt Skin: WOUNDS: Yes surgical site (clean/dry/intact) Urinary Catheter Management: [place]: Cath Placed During This Visit: yes, but has since been removed by the nurse Reason for Continuing Indwelling Catheter: Decision to DC Catheter Urinary Catheter Date of Insertion: 09/17/22 Urinary Catheter Time of Insertion: 21:54 Date Urinary Catheter Removed: 09/17/22 Time Urinary Catheter Discontinued: 22:25 Discharge Data Studies Completed and Pending Pending at discharge Category Date Time Status Pathology: Surgical [PTH] Routine Pth 09/18/22 15:21 Ordered Laboratory Results WBC 9.9 10^3/uL (4.0-10.0) 09/18/22 12:00 RBC 4.03 10^6/uL (4.1-5.3) L 09/18/22 12:00 Hgb 12.2 g/dL (11.5-15.3) 09/18/22 12:00 Hct 36.8 % (37.0-47.0) L 09/18/22 12:00 MCV 91.3 fl (81-99) 09/18/22 12:00 MCH 30.3 pg (28.0-34.0) 09/18/22 12:00 MCHC 33.2 g/dL (30.0-36.0) 09/18/22 12:00 RDW 12.3 % (12.1-15.1) 09/18/22 12:00 Plt Count 162 10^3/cmm (130-400) 09/18/22 12:00 MPV 11.2 fL (7.4-10.4) H 09/18/22 12:00 Neut % (Auto) 72.4 % 09/17/22 15:15 Lymph % (Auto) 19.6 % 09/17/22 15:15 [place] % (Auto) 7.5 % 09/17/22 15:15 Eos % (Auto) 0.2 % 09/17/22 15:15 Baso % (Auto) 0.1 % 09/17/22 15:15 Neut # (Auto) 6.20 10^3/uL (1.8-7.7) 09/17/22 15:15 Lymph # (Auto) 1.7 10^3/uL (0.8-4.8) 09/17/22 15:15 [place] # (Auto) 0.6 10^3/uL (0.2-0.9) 09/17/22 15:15 Eos # (Auto) 0.0 10^3/uL (0.0-0.8) 09/17/22 15:15 Baso # (Auto) 0.0 10^3/uL (0.0-0.1) 09/17/22 15:15 Nucleated RBC % (auto) 0 % 09/17/22 15:15 Nucleated RBCs # 0.0 /100WBC 09/17/22 15:15 Vitals Last Vital Signs Temp 98.3 F 09/18/22 22:09 Pulse 50 L 09/19/22 04:40 Resp 16 09/18/22 22:09 BP 107/57 09/19/22 04:40 Pulse Ox 95 09/18/22 15:40 O2 Del Method 09/18/22 15:40 O2 Flow Rate 6 09/18/22 15:20 Discharge Plan Discharge Patient Disposition: Home Condition: Stable Prescriptions: New docusate sodium 100 mg Capsule 100 mg PO BID Qty: 60 0RF hydrocodone-acetaminophen 5-325 mg Tablet 1 tab PO Q4H PRN (Reason: Moderate To Severe Pain) Qty: 20 0RF ibuprofen 800 mg Tablet 800 mg PO TID Qty: 30 0RF Continued prenat.vits,rima,skt-rfmt-bydxe Tablet 1 tab PO DAILY citalopram [Celexa] 10 mg tablet 10 mg PO DAILY Qty: 30 1RF Discharge Orders: Discharge Order (Routine); Ordered 09/19/22 Ordered By: Kenyatta Martinez Patient Instructions: Opioid Safety Discharge Attestations Time Spent in Discharge Care*: less than 30 min Quality Metrics Clinical Quality Measures [ No reported AMI, CVA or VTE this stay] Coding Level of Care Code Acute Chg FW DC note Diagnoses Sterilization consult Z30.09
[2022-09-19] MEDS: docusate sodium 100 mg Capsule PO (10:25)
[2022-09-19] MEDS: prenatal vitamin Capsule 1 CAP PO (10:25)
[2022-09-19] MEDS: ibuprofen 800 mg tablet PO (10:25)
[2022-09-19 10:27] VITALS: BP 121/68; PULSE 66
[2022-09-19] MEDS: citalopram 20 mg Tablet 10 MG PO (11:08)
[2022-09-19 12:04] VITALS: TEMP 36.4
[2022-09-19 12:05] VITALS: BP 107/68; PULSE 65
[2022-09-19 12:35] VITALS: BP 107/68; PULSE 65
== END 2022-09-19 12:36 | disposition home or self-care (01) | DRG 798 ==
PROVIDERS: Admitting Provider Obstetrics & Gynecology; PCP Nurse Practitioner; Visit Provider Obstetrics & Gynecology
PROC: 0UB70ZZ Excision of Bilateral Fallopian Tubes, Open Approach (ICD-10-PCS; CPT 58605; principal; 2022-09-18 14:00)
DX: O99.334 Smoking (tobacco) complicating childbirth (principal); Z37.0 Single live birth; F17.290 Nicotine dependence, other tobacco product, uncomplicated; O99.344 Other mental disorders complicating childbirth; O69.2XX0 Labor and delivery complicated by other cord entanglement, with compression, not applicable or unspecified; Z3A.39 39 weeks gestation of pregnancy; F41.8 Other specified anxiety disorders
CPT/HCPCS: 36415; 51702; 59025; 59409; 85025; 85027; 88302; J0330; J1885; J2250; J2405; J2590; J2704; J2795; J3010; J7120

== ENCOUNTER 2023-01-03 15:30 | Emergency (ER) | payer OTHER, MEDICAID, SELFPAY ==
[2023-01-03 15:36] VITALS: BP 107/74; PULSE 96; RESP 15; TEMP 36.8; O2SAT 98
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
[2023-01-03 16:08] VITALS: BP 107/74; PULSE 96; RESP 15; TEMP 36.8; O2SAT 98
== END 2023-01-03 16:09 | disposition home or self-care (01) ==
PROVIDERS: Emergency Provider Physician Assistant; PCP Nurse Practitioner
DX: K04.7 Periapical abscess without sinus (principal); K02.9 Dental caries, unspecified
CPT/HCPCS: 99283

== ENCOUNTER 2023-10-23 12:52 | Emergency (ER) | payer OTHER, MEDICAID, SELFPAY ==
[2023-10-23 13:03] VITALS: BP 113/77; PULSE 108; RESP 18; TEMP 37.2; O2SAT 98
--- NOTE | 2023-10-23 13:17 | ED_ITS ---
HPI - Dental/Oral General: Chief complaint: Dental/Oral Stated complaint: swollen right side of face Time Seen by Provider: 10/23/23 12:59 Source: patient Mode of arrival: ambulatory History of Present Illness: 23-year-old female presents emergency ro om complaining of facial pain and swelling low-grade fever no vomiting diarrhea she was seen yesterday in outpatient clinic started on amoxicillin and states she has been taking it. No difficulty swallowing no muffled or hoarse voice. MD Complaint: tooth pain Onset (ago): day(s) Duration: constant Severity: moderate Relieving factors: nothing Exacerbating factors: nothing Context: history of dental caries Associated symptoms: Denies ear or mastoid pain, fever(s), gum swelling, odynophagia, sore throat or tongue swelling Review of Systems Const: Denies: fever(s) or chills ENMT: Denies: odynophagia or ear or mastoid pain Card: Denies: chest pain Resp: Denies: dyspnea GI: Denies: abdominal pain : Denies: dysuria, urinary frequency or urinary urgency Musc: Denies: neck pain or back pain Skin/Breast: Denies: rash or pruritus All/Imm: Denies: tongue swelling PFSH ED PFSH: Medical History Sterilization consult Oral contraceptive prescribed Anxiety and depression Surgical History No history of previous surgery Family History Grandmother Cancer Hypertension Thyroid disease Diabetes Hypercholesterolemia Grandfather Hypertension Diabetes Heart disease Colon cancer Denies family history of Breast cancer Social History Substance/Drug Use: unknown Do you think of yourself as: Straight/Heterosexual Female Reproductive History: Date of last menstrual period: 10/16/23 Para: 1 Physical Exam Const: GENERAL APPEARANCE: cooperative and comfortable ORIENTATION/CONSCIOUSNESS: Yes awake, Yes oriented to person, Yes oriented to place and Yes oriented to time HENMT: COMMON NORMALS: normocephalic and hearing grossly normal bilaterally HEAD & SCALP: normocephalic OTHER: Right mandibular premolar abscess that the level of the gum some swelling noted no active drainage no submandibular swelling no cervical lymphadenopathy. Resp: COMMON NORMALS: normal respiratory effort, No retractions, No use of accessory muscles and clear to auscultation bilaterally AUSCULTATION: clear to auscultation bilaterally Cardio: COMMON NORMALS: regular rate, regular rhythm and No murmurs present (Cardio) RATE: regular rate RHYTHM: regular rhythm GI: COMMON NORMALS: Soft to palpation and No hepatosplenomegaly present AUSCULTATION: Yes normoactive bowel sounds PALPATION: Yes Soft to palpation, No Tenderness to palpation present (GI), No Guarding due to palpation present (GI) and Yes No hepatosplenomegaly present Extremity: COMMON NORMALS: normal to inspection, capillary refill normal, no clubbing, cyanosis or edema, no calf tenderness and no pedal edema Neuro: SENSORIUM/ORIENTATION: Yes oriented to person, Yes oriented to place and Yes oriented to time Skin: COMMON NORMALS: no rashes or lesions noted GENERAL SKIN EXAM: no rashes or lesions noted Course Vital Signs: Vital signs: Vital Signs Temperature 99 F 10/23/23 13:03 Pulse Rate 108 H 10/23/23 13:03 Respiratory Rate 18 10/23/23 13:03 Blood Pressure 113/77 10/23/23 13:03 Pulse Oximetry 98 10/23/23 13:03 Oxygen Delivery Me thod Room Air 10/23/23 13:03 MDM - Dental/Oral Medical Decision Making Patient was started on amoxicillin. Swelling is worse. Antibiotic coverage and adequate. Will stop amoxicillin changed to Augmentin 1 tablet twice daily. Encouraged to follow-up for definitive dental care Differential Diagnosis Likely dental caries Medical Records I reviewed the patient's medical records. Lab Data I reviewed the patient's lab results. No radiology studies performed this visit Discharge Plan Discharge Patient Disposition: Home Clinical Impression: Dental caries Condition: Stable Prescriptions: New amoxicillin-pot clavulanate 875-125 mg tablet 1 tab PO BID Qty: 20 0RF hydrocodone-acetaminophen 5-325 mg tablet 1 tab PO Q6H PRN (Reason: pain) Qty: 10 0RF No Action amoxicillin 875 mg tablet 875 mg PO BID 7 Days Qty: 14 0RF Discharge Orders: Discharge ED (Routine); Ordered 10/23/23 Ordered By: Levy Cueva Referrals: Imelda Rojas, TISSUE INSERTER[facility] [Primary Care Provider] - Discharge Diet: Soft Mechanical Discharge Activity: Increase activity as tolerated Patient Instructions: Opioid Safety, Pain Management Activity Restrictions/Additional Instructions: Thank you for choosing [facility] for your healthcare needs today. Please realize this is an emergency room and that we are providing you with a medical screening exam and this may not be complete and all inclusive of all the testing and or work up that you may need to determine your ailment or severity of your illness. It is very important that you follow up as instructed or that you return to the Emergency Department should you have concerns or if your condition changes or worsens in any way. Received to the facial swelling. Recommend you stop the amoxicillin and start Augmentin 1 p.o. twice daily for 10 days.. You are also given pain medications you should follow-up with your dentist as soon as you are able. Coding Level of Care Code ED Director Informatics for [facility]le
== END 2023-10-23 13:36 | disposition home or self-care (01) ==
PROVIDERS: Emergency Provider Family Medicine; PCP Nurse Practitioner
DX: K02.9 Dental caries, unspecified (principal)
CPT/HCPCS: 99283

== ENCOUNTER → 2023-11-28 08:42 | Outpatient (BNVA) | payer OTHER, MEDICAID, SELFPAY | PROVIDERS: PCP Nurse Practitioner; Visit Provider Nurse Practitioner Family | DX: J02.9 Acute pharyngitis, unspecified (principal) | CPT/HCPCS: 87070; 87880 ==

== ENCOUNTER → 2024-12-29 16:06 | Outpatient (BNVA) | payer MEDICAID, SELFPAY | PROVIDERS: PCP Nurse Practitioner; Visit Provider Nurse Practitioner | DX: R55 Syncope and collapse (principal) | CPT/HCPCS: 80053; 82306; 84443; 85025 ==